=== PATIENT | male | born 1995 | race Hispanic/Latino ===

== ENCOUNTER 2019-03-12 11:26 | Emergency (ER) | payer MEDICAID ==
--- NOTE | 2019-03-12 11:42 | ERPHSYRPT ---
- History of Present Illness Time Seen by Provider: 03/12/19 11:37 Source: patient Exam Limitations: language barrier ([place] language) Physician History: 23 Y/O male twisted L anlkle Tuesday; no allergies; no meds. Wt bearinbg but with pain Method of Injury: twisted (L ankle) Occurred: other (3 days ago) Quality: constant, aching Severity of Pain-Max: moderate Severity of Pain-Current: moderate Lower Extremities Pain: ankle: left Modifying Factors: Improves With: movement Associated Symptoms: unable to bear weight (Secondary to pain), No snapping sensation, No popping sensation Allergies/Adverse Reactions: No Known Drug Allergies Allergy (Unverified 03/12/19 11:51) - Review of Systems Constitutional: No Symptoms Musculoskeletal: Joint Pain (sweling and pain), Joint Swelling Skin: Other (Moderate medial and lateral ecchymosis) Neurological: No Symptoms All Other Systems: Reviewed and Negative - Past Medical History Pertinent Past Medical History: No Neurological History: No Pertinent History Musculoskeletal History: No Pertinent History - Nursing Vital Signs Nursing Vital Signs: Initial Vital Signs Temperature 98.0 F 03/12/19 11:34 Pulse Rate 81 03/12/19 11:34 Respiratory Rate 20 03/12/19 11:34 Blood Pressure 143/75 03/12/19 11:34 O2 Sat by Pulse Oximetry 97 03/12/19 11:34 Pain Scale Pain Intensity 7 - Physical Exam General Appearance: no apparent distress, anxiety (over nature of injury) Cardiovascular/Respiratory Exam: normal breath sounds, heart sounds normal Gastrointestinal/Abdominal Exam: non-tender, soft Back Exam: normal inspection, normal range of motion, No CVA tenderness, No vertebral tenderness Hips Exam: bilateral: non-tender, normal inspection, normal range of motion, no evidence of injury Legs Exam: bilateral leg: non-tender, normal inspection, normal range of motion , no evidence of injury Knees Exam: bilateral knee: non-tender, normal inspection, normal range of motion, no evidence of injury Ankle Exam: right ankle: non-tender, normal inspection, normal range of motion, no evidence of injury, left ankle: ecchymosis, limited range of motion ( Secondary to pain), pain, soft tissue tenderness, swelling Foot Exam: right foot: non-tender, normal inspection, normal range of motion, no evidence of injury, left foot: ecchymosis Neuro/Tendon Exam: normal sensation, normal motor functions, normal tendon functions, responds to pain, no evidence tendon injury, No motor deficit, No sensory deficit Mental Status Exam: alert, oriented x 3, cooperative Skin Exam: normal color (excep ecchymisus L foot and ankle), warm, dry, No rash , No petechiae SpO2 Interpretation: normal O2 Delivery: Room Air Ordered Tests: Active Orders 24 hr Category Date Time Status Crutches STAT Care 03/12/19 12:28 Active Splint STAT Care 03/12/19 12:24 Active ANKLE (3 VIEWS) Stat Exams 03/12/19 12:01 Completed - Progress Progress: improved (Splint in place; sensory and motor intact L toes), re- examined (Motor/function intact Left toes) Progress Note: 03/12/19 12:14 X Ray Left ankle bimaleolar FX 03/12/19 12:30 Advised patient of XRay ressults and need for splint and crutches with follow up Orthopedics tomorrow Counseled pt/family regarding: diagnosis, need for follow-up, rad results - Departure Departure Disposition: Home Clinical Impression: Bimalleolar ankle fracture Qualifiers: Encounter type: initial encounter Fracture type: closed Laterality: left Qualified Code(s): S82.842A - Displaced bimalleolar fracture of left lower leg, initial encounter for closed fracture Condition: Stable Critical Care Time: No Referrals: DOCTOR,NO FAMILY [Primary Care Provider] - Additional Instructions: Non weight bearing; use crutches. Elevate, cold to area when able - off and on. Follow up tomorrow - be sure to take the CD of the Xray showing the fracture. Pain medications as prescribed. Prescriptions: Hydrocodone Bit/Acetaminophen [[place] 7.5-325 Tablet] 1 each PO Q6H PRN PRN #14 tablet PRN Reason: Mild To Moderate Pain
[2019-03-12 12:22] VITALS: BP 119/68; PULSE 70; O2SAT 98
--- NOTE | 2019-03-12 12:22 | XRAY ---
Indication: Pain and bruising following injury. Comparison: None 3 views of the left ankle demonstrates bimalleolar fractures and soft tissue swelling with the medial malleolus fracture minimally displaced. No other bony, articular, or soft tissue abnormalities.
== END 2019-03-12 13:11 | disposition home or self-care (01) ==
LOC: ED 11:26
DX: S82.842A Displaced bimalleolar fracture of left lower leg, initial encounter for closed fracture (principal); X50.1XXA Overexertion from prolonged static or awkward postures, initial encounter
CPT/HCPCS: 29505; 73610; 99284